=== PATIENT | male | born 1955 | race American Indian/Alaskan Native ===

== ENCOUNTER 2019-08-23 16:06 | Emergency (ER) | payer MEDICAID ==
[2019-08-23 17:27] VITALS: BP 135/81; PULSE 134
[2019-08-23] MEDS ORDERED: Lidocaine 1% 30 ML SDV INJECT ONE (19:50)
[2019-08-23] MEDS ORDERED: Cephalexin 500 MG Cap PO ONE (20:06)
--- NOTE | 2019-08-23 20:13 | EDM.PDOC ---
ED HPI GENERAL MEDICAL PROBLEM - General Chief Complaint: Skin Complaint Stated Complaint: SWELLING IN GROIN AREA Time Seen by Provider: 08/23/19 19:35 Source of Information: Reports: Patient History Limitations: Reports: No Limitations - History of Present Illness INITIAL COMMENTS - FREE TEXT/NARRATIVE: This 64 yo male patient reports to the ED with an abscess to his right buttocks. The patient reports he has had increased pain and drainage over the past 4 days. The patient has been using iodine for topical treatment. The patient has not been seen by his primary care facility. Onset Date: 08/19/19 Duration: Constant, Getting Worse Location: Reports: Lower Extremity, Right Quality: Reports: Ache, Dull Severity: Moderate Improves with: Reports: None Worsens with: Reports: None Context: Reports: Other Associated Symptoms: Reports: No Other Symptoms Scrotum Pain Score (Numeric/FACES): 7 - Related Data Allergies Allergy/AdvReac Type Severity Reaction Status Date / Time Penicillins Allergy Cannot Verified 08/23/19 20:12 Remember Home Meds: Home Meds Acetaminophen [Tylenol] 2 tab PO ASDIRECTED PRN 09/08/14 [History] Albuterol [Ventolin HFA] 1 puff INH ASDIRECTED PRN 09/08/14 [History] Cetirizine HCl [Zyrtec] 1 tab PO DAILY 09/08/14 [History] Ibuprofen [Advil] 3 tab PO Q6H PRN 09/08/14 [History] LORazepam [Ativan] 1 tab PO ASDIRECTED PRN 09/08/14 [History] Lisinopril 1 tab PO DAILY 09/08/14 [History] Ranitidine HCl [Zantac 75] 1 tab PO ASDIRECTED PRN 09/08/14 [History] Alogliptin Benzoate [Alogliptin] 25 mg PO DAILY 08/23/19 [History] Aspirin [Halfprin] 81 mg PO DAILY 08/23/19 [History] Diclofenac Sodium [Voltaren 1% Gel] 1 applic TOP QID PRN 08/23/19 [History] Fish Oil/[place]-3 Fatty Acids [Fish Oil 1,000 MG] 1,000 mg PO DAILY 08/23/19 [ History] Gabapentin [Neurontin] 300 mg PO TID 08/23/19 [History] Omeprazole 20 mg PO DAILY 08/23/19 [History] Pioglitazone HCl 15 mg PO DAILY 08/23/19 [History] atorvaSTATin Calcium [Atorvastatin Calcium] 20 mg PO DAILY 08/23/19 [History] metFORMIN HCl [Metformin HCl] 1,000 mg PO BID 08/23/19 [History] Past Medical History HEENT History: Reports: Allergic Rhinitis Cardiovascular History: Reports: High Cholesterol, Hypertension Respiratory History: Reports: None Other Respiratory History: uses albuterol occasionally. denies copd or asthma. Gastrointestinal History: Reports: None Genitourinary History: Reports: None Musculoskeletal History: Reports: None Neurological History: Reports: None Psychiatric History: Reports: Anxiety, Depression Endocrine/Metabolic History: Reports: Diabetes, Type II Hematologic History: Reports: None Immunologic History: Reports: None Oncologic (Cancer) History: Reports: None Dermatologic History: Reports: None - Infectious Disease History Infectious Disease History: Reports: None - Past Surgical History Head Surgeries/Procedures: Reports: None Social & Family History - Tobacco Use Smoking Status *Q: Current Every Day Smoker Years of Tobacco use: 40 Packs/Tins Daily: 0.5 - Caffeine Use Caffeine Use: Reports: Coffee - Recreational Drug Use Recreational Drug Use: No ED ROS GENERAL - Review of Systems Review Of Systems: Comprehensive ROS is negative, except as noted in HPI. ED EXAM, SKIN/RASH Exam: See Below Exam Limited By: No Limitations General Appearance: Alert, WD/WN, Mild Distress Eye Exam: Bilateral Eye: EOMI, PERRL Ears: Normal External Exam Nose: Normal Inspection Throat/Mouth: Normal Inspection, Normal Lips, Normal Teeth Respiratory/Chest: No Respiratory Distress, Lungs Clear, Normal Breath Sounds, No Accessory Muscle Use, Chest Non-Tender Cardiovascular: Normal Peripheral Pulses, Regular Rate, Rhythm GI/Abdominal: Normal Bowel Sounds, Soft, Non-Tender (Male) Exam: Deferred Rectal (Males) Exam: Deferred Back Exam: Normal Inspection, Full Range of Motion, NT Extremities: Other (abscess right buttocks) Neurological: Alert, Oriented, CN II-XII Intact, Normal Cognition, Normal Gait, Normal Reflexes, No Motor/Sensory Deficits Skin: Erythema, Increased Warmth Location, Skin: Lower Extremity, Right Characteristics: Erythematous Associated features: Warmth, Tenderness, Swelling, Induration, Inflammation Lymphatic: No Adenopathy Course - Vital Signs Last Recorded V/S: Last Vital Signs Temp 37.4 C 08/23/19 17:26 Pulse 134 H 08/23/19 17:26 Resp 18 08/23/19 17:26 BP 135/81 08/23/19 17:26 Pulse Ox 96 08/23/19 17:26 - Orders/Labs/Meds Orders: Active Orders 24 hr Category Date Time Status CULTURE WOUND [RM] Stat Lab 08/23/19 19:47 Ordered Meds: Medications Discontinued Medications Generic Name Dose Route Start Last Admin Trade Name Kathy PRN Reason Stop Dose Admin Cephalexin 500 mg 08/23/19 20:06 08/23/19 20:12 Keflex PO 08/23/19 20:07 500 mg ONETIME ONE Administration Lidocaine HCl 30 ml 08/23/19 19:50 08/23/19 19:55 Xylocaine-Mpf 1% INJECT 08/23/19 19:51 30 ml ONETIME ONE Administration Departure - Departure Time of Disposition: 20:10 Disposition: Home, Self-Care 01 Condition: Fair Clinical Impression: Abscess - Discharge Information *PRESCRIPTION DRUG MONITORING PROGRAM REVIEWED*: Not Applicable *COPY OF PRESCRIPTION DRUG MONITORING REPORT IN PATIENT PHONG: Not Applicable Instructions: Skin Abscess, Incision and Drainage, Care After Forms: ED Department Discharge Care Plan Goals: The patient was advised of the examination results during the visit. The abscess was incised and drained during the visit. The patient was given an oral dose of Keflex (500 mg) while in the ED. The patient was discharged with a script for Keflex (500 mg) #40 to take 1 by mouth 4 times per day for 10 days. The patient was encouraged to keep the area as clean as possible. If the patient has any additional symptoms or concerns, the patient should either return to the ED or visit his primary care facility. Sepsis Event Note - Evaluation Sepsis Screening Result: No Definite Risk - Focused Exam Vital Signs: Vital Signs Temp Pulse Resp BP Pulse Ox 08/23/19 17:26 37.4 C 134 H 18 135/81 96 Date Exam was Performed: 08/23/19 Time Exam was Performed: 20:13 - My Orders Last 24 Hours: My Active Orders 08/23/19 19:47 CULTURE WOUND [RM] Stat - Assessment/Plan Last 24 Hours: My Active Orders 08/23/19 19:47 CULTURE WOUND [RM] Stat
== END 2019-08-23 20:21 | disposition home or self-care (01) ==
LOC: DL.ED 16:06
DX: L02.31 Cutaneous abscess of buttock (principal); E78.00 Pure hypercholesterolemia, unspecified; I10 Essential (primary) hypertension; F41.9 Anxiety disorder, unspecified; F32.9 Major depressive disorder, single episode, unspecified; E11.9 Type 2 diabetes mellitus without complications; F17.210 Nicotine dependence, cigarettes, uncomplicated; Z88.0 Allergy status to penicillin; Z79.899 Other long term (current) drug therapy; Z79.82 Long term (current) use of aspirin; Z79.84 Long term (current) use of oral hypoglycemic drugs
CPT/HCPCS: 87070; 87077; 87186; 99283; A9270; J2001

== ENCOUNTER 2021-10-16 17:10 | Emergency (ER) | payer MEDICAID, MEDICARE ==
[2021-10-16] MEDS ORDERED: Sodium Chloride 0.9% 10 ML Syringe FLUSH PRN (17:22)
[2021-10-16 18:06] LABS: PTT,PARTIAL THROMBOPLSTIN TIME 23.3 SEC (22.0-34.0)
[2021-10-16 18:09] LABS: ANION GAP 14.2 mEq/L (7-13); CHLORIDE,CL 96 mmol/L (98-107); SODIUM,NA 131 mmol/L (136-145)
[2021-10-16] MEDS ORDERED: Magnesium Sulfate/Water 2 GM in Premix Bag 1 BAG IV ONE ×2 (18:31→18:32)
[2021-10-16] MEDS ORDERED: Sodium Chloride 0.9% 1,000 ML IV ONE (18:31)
[2021-10-16] MEDS ORDERED: Acetaminophen 500 MG Tab PO ONE (20:55)
[2021-10-16] MEDS ORDERED: Acetaminophen 500 MG Tab ONE (20:57)
[2021-10-16 23:07] VITALS: BP 122/65; PULSE 78
== END 2021-10-16 23:30 | disposition home or self-care (01) ==
LOC: DL.ED 17:10
DX: G51.0 Bell's palsy (principal); E83.42 Hypomagnesemia; E11.9 Type 2 diabetes mellitus without complications; I10 Essential (primary) hypertension; E78.00 Pure hypercholesterolemia, unspecified; F41.9 Anxiety disorder, unspecified; F32.A Depression, unspecified; Z79.899 Other long term (current) drug therapy; Z88.0 Allergy status to penicillin
CPT/HCPCS: 36415; 70450; 80053; 81001; 82947; 83605; 83735; 84484; 85025; 85610; 85730; 86140; 93005; 93010; 96365; 96366; 99284; 99284-25; A9270-GY; J3475; J7030; U0002

== ENCOUNTER 2024-04-02 10:51 | Emergency (ER) | payer MEDICARE, BC, OTHER ==
[2024-04-02] MEDS ORDERED: Sodium Chloride 0.9% 10 ML Syringe FLUSH PRN (11:32)
[2024-04-02 11:40] LABS: HEMATOCRIT 53.2 % (40.0-54.0); HEMOGLOBIN 18.1 g/dL (14.0-18.0); MEAN CORPUSCULAR HEMOGLOBIN 31.9 pg (27.0-34.0); MEAN CORPUSCULAR VOLUME 93.7 fL (80-100); PLATELET COUNT,PLT 285 10^3/uL (150-450); RED BLOOD CELL COUNT 5.68 10^6/uL (4.6-6.2); WHITE BLOOD CELL COUNT,WBC 16.6 10^3/uL (5.0-10.0)
[2024-04-02] MEDS: Sodium Chloride 0.9% 1,000 ML IV ONE (11:44)
[2024-04-02 11:53] LABS: A/G RATIO 1.1; ALANINE AMINOTRANSFERASE,ALT 41 U/L (16-63); ALBUMIN 4.2 g/dL (3.4-5.0); ALKALINE PHOSPHATASE 102 U/L (46-116); ANION GAP 15.7 mEq/L (7-13); ASPARTATE AMNIOTRANSFERASE,AST 24 U/L (15-37); BILIRUBIN TOTAL 1.5 mg/dL (0.2-1.0); BLOOD UREA NITROGEN,BUN 14 mg/dL (7-18); BUN/CREATININE RATIO 13.9 (No establ ref range); CALCIUM 10.3 mg/dL (8.5-10.1); CARBON DIOXIDE,CO2 27 mmol/L (21-32); CHLORIDE,CL 99 mmol/L (98-107); CREATININE 1.01 mg/dL (0.70-1.30); GLUCOSE RANDOM 137 mg/dL (70-99); MAGNESIUM 1.8 mg/dL (1.8-2.4); POTASSIUM,K 4.7 mmol/L (3.5-5.1); SODIUM,NA 137 mmol/L (136-145)
[2024-04-02 11:56] LABS: APPEARANCE,URINE CLEAR (CLEAR); BILIRUBIN,URINE NEGATIVE (NEGATIVE); COLOR,URINE YELLOW (YELLOW); GLUCOSE,URINE NEGATIVE (NEGATIVE); KETONES,URINE NEGATIVE (NEGATIVE); LEUKOCYTE ESTERASE,URINE NEGATIVE (NEGATIVE); NITRITE,URINE NEGATIVE (NEGATIVE); OCCULT BLOOD,URINE NEGATIVE (NEGATIVE); PROTEIN,URINE 30 (NEGATIVE); UROBILINOGEN,URINE 0.2 mg/dL (0.2-1.0)
[2024-04-02 11:56] LABS: BASOPHILS PERCENT AUTO 0.2 % (0.0-1.0); EOSINOPHILS PERCENT AUTO 0.4 % (1.0-3.0); LACTIC ACID 1.7 mmol/L (0.4-2.0); LYMPHOCYTES PERCENT AUTO 11.5 % (20.5-50.1); MONOCYTES PERCENT AUTO 8.4 % (2-8); NEUTROPHILS PERCENT AUTO 79.5 % (42.2-75.2)
[2024-04-02 11:58] LABS: C-REACTIVE PROTEIN < 0.50 ng/dL (<=0.50); ESTIMATED GFR 81 mL/min (>=60)
[2024-04-02 12:15] VITALS: BP 114/73; PULSE 114
[2024-04-02 12:39] LABS: BACTERIA,URINE FEW /HPF (0-FEW/HPF); EPITHELIAL CELLS,URINE FEW /HPF (NOT SEEN); MUCUS,URINE FEW /LPF (NOT SEEN); RBC,URINE 0-5 /HPF (0-5); WBC,URINE 0-5 /HPF (0-5/HPF)
[2024-04-02 13:03] LABS: EOSINOPHILS PERCENT MAN 1 % (1-3); LYMPHOCYTES PERCENT MAN 11 % (20-50); MONOCYTES PERCENT MAN 8 % (2-8); SEG NEUTROPHILS PERCENT MAN 80 % (42-75)
== END 2024-04-02 12:50 | disposition home or self-care (01) ==
LOC: DL.ED 10:51
DX: J18.9 Pneumonia, unspecified organism (principal); I10 Essential (primary) hypertension; E78.00 Pure hypercholesterolemia, unspecified; K21.9 Gastro-esophageal reflux disease without esophagitis; E11.9 Type 2 diabetes mellitus without complications; F17.210 Nicotine dependence, cigarettes, uncomplicated; Z79.899 Other long term (current) drug therapy; Z79.82 Long term (current) use of aspirin; Z88.0 Allergy status to penicillin
CPT/HCPCS: 36415; 71045; 80053; 81001; 83605; 83735; 84145; 85025; 86140; 96360; 99284; 99285; J7030

== ENCOUNTER 2024-12-03 05:45 | Day surgery (SDC) | payer MEDICARE, BC, OTHER ==
[2024-12-03] MEDS ORDERED: Propofol 200 MG/20 ML SDV ONE (05:46)
[2024-12-03] MEDS ORDERED: Dextrose 5%-0.45% NaCl 1,000 ML IV SCH (06:00)
[2024-12-03] MEDS: Lactated Ringers 1,000 ML IV SCH (06:39)
[2024-12-03 08:14] VITALS: BP 134/84; PULSE 105
== END 2024-12-03 08:48 | disposition home or self-care (01) ==
LOC: DL.ENDO 05:45
PROVIDERS: ATTEND Internal Medicine Gastroenterology
DX: Z12.11 Encounter for screening for malignant neoplasm of colon (principal); K57.30 Diverticulosis of large intestine without perforation or abscess without bleeding; K64.8 Other hemorrhoids; I10 Essential (primary) hypertension
CPT/HCPCS: G0121; J7120